=== PATIENT | male | born 1955 ===

== ENCOUNTER 2021-11-15 14:52 | Day surgery (SDC) | payer BC ==
[~2021-11-15] VITALS: Ht 180.3 cm; Wt 73.9 kg
[2021-11-15] MEDS ORDERED: FLAGYL500 MG PO (15:11)
[2021-11-15] MEDS ORDERED: DESYREL 100MG100 MG PO (15:12)
[2021-11-15] MEDS ORDERED: CIPRO 500MG TA500 MG PO (15:12)
[2021-11-15] MEDS ORDERED: FLOMAX 0.40.4 MG/CAP PO (15:13)
[2021-11-15] MEDS ORDERED: FLEXERIL 1010 MG/TAB PO (15:14)
[2021-11-15 15:33] VITALS: BP 121/81; PULSE 88; TEMP 97.7
[2021-11-15] MEDS ORDERED: NORCO 325 MG-51 TAB PO (18:51)
[2021-11-15] MEDS ORDERED: PYRIDIUM 100MG100 MG PO (18:51)
[2021-11-15 19:40] VITALS: BP 143/83; PULSE 65; TEMP 97.9
[2021-11-15 20:00] VITALS: BP 125/79; PULSE 66
[2021-11-15 20:07] VITALS: BP 121/77; PULSE 70
--- NOTE | 2021-11-15 20:20 | NUR ---
192 Report received from VAISHALI Scruggs, in PACU. 1932 Transfer pt from PACU to [facility] 7 via cart and this RN assist. Upon arrival, pt desires to use restroom. Pt ambulates with RN assist to restroom without complication. This RN stays in restroom with pt. Pt voids and returns to [facility] with this RN assist. Pt denies any pain or nausea and requests water and saltine crackers. 1939 Monitors on and alarms set. Pt's brought from waiting room. 1999 Discharge instructions given to pt and pt's . All questions answered to their satisfaction. 2019 Pt transferred out of hospital via wheelchair and VAISHALI Scruggs assist to private vehicle driven by pt's .
== END 2021-11-15 20:20 | disposition home or self-care (01) ==
LOC: SDCO 14:52
DX: N20.1 Calculus of ureter (principal); Z79.82 Long term (current) use of aspirin
CPT/HCPCS: C1769; C2617; J1885; J2405; J2704; Q9967